=== PATIENT | female | born 1990 | race Caucasian/White ===

== ENCOUNTER → 2016-11-22 | Outpatient (CLI) | payer OTHER ==
--- NOTE | 2016-11-22 10:48 | DI ---
US BRST U/L OR B/L,11/22/2016 8:59 AM: Clinical History: Palpable right breast lump. Previous Exam: None at this facility. Findings: Physical examination revealed diffusely freely mobile soft palpable area within the left lateral [address] on the 9:00 axis approximately 5 cm from the nipple. Sonographic evaluation of this area revealed normal fibroglandular elements. Impression: No mammographic evidence of malignancy. BIRADS: 2: Benign findings Recommendations: Annual screening beginning at age 40. Note: Breast examination has been discussed and encouraged, and the patient informed to return if the re is any new palpable abnormality in the interval between screening. Benign findings.
== END ==
LOC: US 08:55
PROVIDERS: ATTEND Nurse Practitioner Family
DX: N63 Unspecified lump in breast (principal); Z87.898 Personal history of other specified conditions; Z82.49 Family history of ischemic heart disease and other diseases of the circulatory system
CPT/HCPCS: 76641

== ENCOUNTER → 2016-11-26 | Outpatient (CLI) | payer OTHER ==
--- NOTE | 2016-11-26 10:03 | DI ---
MRI BRAIN W/O CN,11/26/2016 7:56 AM: Clinical History: History of headaches. Previous Exam: None at this facility. Findings: Multiplanar MR images are obtained through the brain without contrast, and demonstrate normal, symmet liz ventricles and other CSF containing spaces. There is no mass, hemorrhage nor midline shift. The s urrounding soft tissue and osseous structures are unremarkable. Intraorbital structures are unremarka ble. There is no abnormal FLAIR signal and no abnormally restricted diffusion. The major vascular flow voids are unremarkable. The cerebellopontine angles are within normal limits. There is no mass within the internal auditory canals. The paranasal sinuses are unremarkable. The midline structures and parasellar region is unremarkable. There is no evidence of Chiari malformation. The upper cervical spine is unremarkable. Impression: Normal MRI brain.
== END ==
LOC: MRI 07:53
PROVIDERS: ATTEND Nurse Practitioner Family
DX: R51 Headache (principal)
CPT/HCPCS: 70551